=== PATIENT | female | born 1965 | race Caucasian/White ===

== ENCOUNTER 2016-06-21 16:16 | Emergency (ER) | payer MEDICARE, OTHER ==
[~2016-06-21] VITALS: Ht 162.6 cm; Wt 104.3 kg
[~2016-06-21 16:16] MED LIST: ACET12.53 PO; AMOX500C2 PO; HYDR25TA4 PO; IBUP-1955 PO; LEVO75TA7 PO; SIMV20TA6 PO
--- NOTE | 2016-06-21 16:37 | NUR ---
DR EMMANUEL AT THE BEDSIDE FOR EVAL AND EXAM.
[2016-06-21 16:59] LABS: BASOPHILS # (AUTO) 0.1 K/uL (0.0-8.0); BASOPHILS % (AUTO) 1.1 % (0.0-2.0); EOSINOPHILS # (AUTO) 0.3 K/uL (0.0-0.7); EOSINOPHILS % (AUTO) 5.1 % (0.0-7.0); HEMATOCRIT 32.3 % (37-47); HEMOGLOBIN 10.8 G/DL (12.0-16.0); LYMPHOCYTES # (AUTO) 2.3 K/uL (20.0-40.0); LYMPHOCYTES % (AUTO) 33.6 % (20.5-51.5); MEAN CORPUSCULAR HEMOGLOBIN 27.3 UUG (27.0-31.0); MEAN CORPUSCULAR HGB CONC 33 g/dL (32.0-37.0); MEAN CORPUSCULAR VOLUME 82.1 FL (81.0-99.0); MONOCYTES # (AUTO) 0.7 K/uL (2.0-10.0); MONOCYTES % (AUTO) 10.6 % (0.0-11.0); NEUTROPHILS # (AUTO) 3.3 K/uL (1.8-8.9); NEUTROPHILS % (AUTO) 49.6 % (38.5-71.5); PLATELET COUNT (AUTO) 341 K/UL (150-450); RED BLOOD CELL COUNT(AUTO) 3.94 MIL/UL (4.2-5.4); WHITE BLOOD COUNT (AUTO) 6.7 K/UL (4.0-11.2)
[2016-06-21 17:03] LABS: CALCIUM 8.6 mg/dL (8.5-10.1); CREATININE 1.1 mg/dL (0.6-1.3); POTASSIUM 3.3 mmol/L (3.5-5.1)
[2016-06-21 17:09] LABS: ALBUMIN 3.7 g/dL (3.4-5.0); BILIRUBIN,TOTAL 0.3 mg/dL (0.2-1.0); TOTAL PROTEIN, SERUM 7.3 g/dL (6.4-8.2)
[2016-06-21] MEDS ORDERED: HYDROCHLOROTHIAZIDE 25 MG TABLET PO ONE (17:30)
[2016-06-21] MEDS ORDERED: SIMVASTATIN 10 MG TABLET PO ONE (17:30)
[2016-06-21] MEDS ORDERED: LEVOTHYROXINE SODIUM 75 MCG TABLET PO ONE (17:30)
[2016-06-21] MEDS ORDERED: POTASSIUM BICARBONATE/CIT AC 25 MEQ TABLET.EFF PO ONE (17:30)
[2016-06-21] MEDS ORDERED: SIMVASTATIN 10 MG TABLET ONE (17:40)
[2016-06-21] MEDS ORDERED: LEVOTHYROXINE SODIUM 75 MCG TABLET ONE (17:40)
[2016-06-21] MEDS ORDERED: POTASSIUM BICARBONATE/CIT AC 25 MEQ TABLET.EFF ONE (17:40)
[2016-06-21] MEDS ORDERED: HYDROCHLOROTHIAZIDE 25 MG TABLET ONE (17:40)
--- NOTE | 2016-06-21 17:48 | NUR ---
Patient discharged to home in stable conditon. Written and verbal after care instructions given. Patient verbalizes understanding of instructions.
[2016-06-21 17:49] VITALS: BP 147/66
[2016-06-21 17:50] LABS: ANISOCYTOSIS 1+
[2016-06-21 17:51] LABS: OVALOCYTES FEW
== END 2016-06-21 17:49 | disposition home or self-care (01) ==
LOC: ER 16:16
DX: K08.89 Other specified disorders of teeth and supporting structures (principal); I10 Essential (primary) hypertension; E03.9 Hypothyroidism, unspecified; E78.5 Hyperlipidemia, unspecified
CPT/HCPCS: 36415; 85025; A4663

== ENCOUNTER 2016-06-23 12:15 | Emergency (ER) | payer MEDICARE, OTHER ==
[~2016-06-23] VITALS: Ht 165.1 cm; Wt 104.3 kg
[2016-06-23] MEDS ORDERED: AMOXICILLIN-CLAVUL 500-125MG TABLET PO ONE (13:00)
[2016-06-23] MEDS ORDERED: LEVOTHYROXINE SODIUM 75 MCG TABLET PO ONE (13:00)
[2016-06-23] MEDS ORDERED: HYDROCHLOROTHIAZIDE 25 MG TABLET PO ONE (13:00)
[2016-06-23] MEDS ORDERED: SIMVASTATIN 10 MG TABLET PO ONE (13:00)
[2016-06-23] MEDS ORDERED: AMOXICILLIN-CLAVUL 500-125MG TABLET ONE (13:08)
[2016-06-23] MEDS ORDERED: HYDROCHLOROTHIAZIDE 25 MG TABLET ONE (13:09)
[2016-06-23] MEDS ORDERED: SIMVASTATIN 10 MG TABLET ONE (13:09)
[2016-06-23] MEDS ORDERED: LEVOTHYROXINE SODIUM 75 MCG TABLET ONE (13:09)
--- NOTE | 2016-06-23 13:11 | NUR ---
Patient discharged to home in stable conditon. Written and verbal after care instructions given. Patient verbalizes understanding of instructions.
[2016-06-23 13:12] VITALS: BP 115/88
== END 2016-06-23 13:12 | disposition home or self-care (01) ==
LOC: ER 12:15
DX: K08.89 Other specified disorders of teeth and supporting structures (principal); I10 Essential (primary) hypertension; E03.9 Hypothyroidism, unspecified; E78.5 Hyperlipidemia, unspecified; Z59.0 Homelessness
CPT/HCPCS: A4663

== ENCOUNTER 2016-07-31 11:37 | Emergency (ER) | payer MEDICARE, OTHER ==
[~2016-07-31] VITALS: Ht 162.6 cm; Wt 113.9 kg
--- NOTE | 2016-07-31 12:07 | NUR ---
pt requesting to see a social professionals. called [facility]. she said she will come and seee the pt.
--- NOTE | 2016-07-31 12:10 | NUR ---
shake talking to pt.
--- NOTE | 2016-07-31 13:23 | NUR ---
SW consult requested from JOHN Field, who stated that patient wanted to speak with a SW. SW arrived to the ED and patient was waiting for SW in the ED lobby (medical care/services were already completed). SW met with patient who was alert, oriented, cooperative, and receptive to meet with SW. Patient expressed being homeless and wanted to see if SW had resources on housing. SW assessed patient's needs for food, half-way, income, and personal hygiene needs. Patient was receptive of getting resources for all these. 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 SW provided the resources listed below to patient and also encouraged patient to follow up with her case loader operator for ongoing assistance with housing resources and any other community resources she feels she needs help linking to. Patient agreed and thanked YOUNG. 1) List of locations for showers, sack lunches, and hot meals Saturday through Saturday throughout the [facility] 2) List of Food Pantries Saturday through Saturday throughout the [facility] 3) [facility], [address] [place] [id number]; [phone] Patient stated that she received a disability check every month, and is able to manage with paying for food. Patient also stated that she was in the [facility] half-way program up until it closed at the end of April. Patient expressed not being interested in additional half-way resources at this time. SW reported back to JOHN Field and Dr. Rice on the outcome of YOUNG's meeting with patient and the resources provided. A copy of the resources that were provided to the patient were filed inpatient's ED file.
== END 2016-07-31 12:21 | disposition home or self-care (01) ==
LOC: ER 11:39
DX: Z76.0 Encounter for issue of repeat prescription (principal); I10 Essential (primary) hypertension; E78.5 Hyperlipidemia, unspecified; E03.9 Hypothyroidism, unspecified; Z59.0 Homelessness
CPT/HCPCS: A4663

== ENCOUNTER 2016-08-06 11:41 | Emergency (ER) | payer MEDICARE, OTHER ==
[~2016-08-06] VITALS: Ht 165.1 cm; Wt 113.9 kg
[~2016-08-06 11:41] MED LIST changes: -ACET12.53 PO; -AMOX500C2 PO; -IBUP-1955 PO
--- NOTE | 2016-08-06 13:15 | NUR ---
PT WET DOWN TO [place] FOR LUNCH.
[2016-08-06 14:13] LABS: BASOPHILS # (AUTO) 0.1 K/uL (0.0-8.0); BASOPHILS % (AUTO) 0.9 % (0.0-2.0); EOSINOPHILS # (AUTO) 0.2 K/uL (0.0-0.7); EOSINOPHILS % (AUTO) 2.8 % (0.0-7.0); HEMATOCRIT 37.2 % (37-47); LYMPHOCYTES # (AUTO) 2.2 K/UL (0.8-4.8); LYMPHOCYTES % (AUTO) 29.8 % (20.5-51.5); MEAN CORPUSCULAR HEMOGLOBIN 26.5 UUG (27.0-31.0); MEAN CORPUSCULAR HGB CONC 32 g/dL (32.0-37.0); MEAN CORPUSCULAR VOLUME 82.3 FL (81.0-99.0); MONOCYTES # (AUTO) 0.7 K/UL (0.1-1.30); MONOCYTES % (AUTO) 9.6 % (0.0-11.0); NEUTROPHILS # (AUTO) 4.2 K/UL (1.8-8.9); NEUTROPHILS % (AUTO) 56.9 % (38.5-71.5); PLATELET COUNT (AUTO) 322 K/UL (150-450); RED BLOOD CELL COUNT(AUTO) 4.52 MIL/UL (4.2-5.4); WHITE BLOOD COUNT (AUTO) 7.4 K/UL (4.0-11.2)
[2016-08-06 14:36] LABS: BILIRUBIN,TOTAL 0.3 mg/dL (0.2-1.0); CREATININE 0.9 mg/dL (0.6-1.3); POTASSIUM 2.9 mmol/L (3.5-5.1); TOTAL PROTEIN, SERUM 8.5 g/dL (6.4-8.2)
--- NOTE | 2016-08-06 14:38 | NUR ---
Patient is resting comfortably in bed with eyes closed, NAD noted.
[2016-08-06] MEDS ORDERED: POTASSIUM BICARBONATE/CIT AC 25 MEQ TABLET.EFF PO ONE (14:45)
[2016-08-06] MEDS ORDERED: POTASSIUM BICARBONATE/CIT AC 25 MEQ TABLET.EFF ONE (15:00)
[2016-08-06 15:34] VITALS: BP 124/70
--- NOTE | 2016-08-06 15:34 | NUR ---
Patient given written and verbal discharge instructions. Patient verbalizes understanding of instructions. Patient is ambulatory with steady gait. Refuses offer of care home placement. Patient given list of available shelters in surrounding area.
== END 2016-08-06 15:36 | disposition home or self-care (01) ==
LOC: ER 11:41
DX: E87.6 Hypokalemia (principal); I10 Essential (primary) hypertension; E78.5 Hyperlipidemia, unspecified; E03.9 Hypothyroidism, unspecified
CPT/HCPCS: 36415; 83735; 85025; A4663

== ENCOUNTER 2016-09-07 09:30 | Emergency (ER) | payer MEDICARE, OTHER ==
[~2016-09-07] VITALS: Ht 162.6 cm; Wt 104.3 kg
--- NOTE | 2016-09-07 09:49 | NUR ---
[facility] in [facility] - 09/07/16 at 0953 by FELIX CALLED 3 TIMES NO ANSWER. DEJAHBT
--- NOTE | 2016-09-07 09:59 | NUR ---
PT IS IN ROOM #5. DR PENNY EVALUATED THE PT.
[2016-09-07] MEDS: IBUPROFEN 800 MG TABLET PO ONE (11:12)
[2016-09-07] MEDS ORDERED: IBUPROFEN 800 MG TABLET ONE (11:17)
[2016-09-07] MEDS: LEVOTHYROXINE SODIUM 75 MCG TABLET PO ONE (11:30)
[2016-09-07] MEDS: SIMVASTATIN 10 MG TABLET PO ONE (11:30)
[2016-09-07] MEDS: HYDROCHLOROTHIAZIDE 25 MG TABLET PO ONE (11:31)
[2016-09-07] MEDS ORDERED: LEVOTHYROXINE SODIUM 75 MCG TABLET ONE (11:38)
[2016-09-07] MEDS ORDERED: SIMVASTATIN 10 MG TABLET ONE (11:39)
[2016-09-07] MEDS ORDERED: HYDROCHLOROTHIAZIDE 25 MG TABLET ONE (11:39)
== END 2016-09-07 11:31 | disposition home or self-care (01) ==
LOC: ER 09:30
DX: Z76.0 Encounter for issue of repeat prescription (principal); K08.89 Other specified disorders of teeth and supporting structures; E78.5 Hyperlipidemia, unspecified; I10 Essential (primary) hypertension; E03.9 Hypothyroidism, unspecified; Z59.0 Homelessness
CPT/HCPCS: A4663

== ENCOUNTER 2016-12-11 11:43 | Emergency (ER) | payer MEDICARE, OTHER ==
[~2016-12-11] VITALS: Ht 162.6 cm; Wt 101.2 kg
--- NOTE | 2016-12-11 12:06 | NUR ---
YUSEF MAHAJAN AT THE BEDSIDE.
[2016-12-11 12:26] VITALS: BP 149/67
[2016-12-11] MEDS ORDERED: HYDROCHLOROTHIAZIDE 25 MG TABLET PO ONE (12:30)
[2016-12-11] MEDS ORDERED: HYDROCHLOROTHIAZIDE 25 MG TABLET ONE (12:39)
== END 2016-12-11 12:31 | disposition home or self-care (01) ==
LOC: ER 11:45
DX: Z76.0 Encounter for issue of repeat prescription (principal); E03.9 Hypothyroidism, unspecified; I10 Essential (primary) hypertension; K08.89 Other specified disorders of teeth and supporting structures; Z59.0 Homelessness
CPT/HCPCS: 99283; A4663

== ENCOUNTER 2017-11-07 06:10 | Emergency (ER) | payer MEDICARE, OTHER ==
[~2017-11-07] VITALS: Ht 162.6 cm; Wt 93.4 kg
--- NOTE | 2017-11-07 07:23 | NUR ---
Patient given written and verbal discharge instructions. Patient verbalizes understanding of instructions. Patient is ambulatory with steady gait. Refuses offer of snf placement. Patient given list of available shelters in surrounding area.
[2017-11-07 07:24] VITALS: BP 118/71
== END 2017-11-07 07:24 | disposition home or self-care (01) ==
LOC: ER 06:16
DX: I10 Essential (primary) hypertension (principal); Z76.0 Encounter for issue of repeat prescription; E78.5 Hyperlipidemia, unspecified; E03.9 Hypothyroidism, unspecified; Z59.0 Homelessness
CPT/HCPCS: 99283; A4663

== ENCOUNTER 2017-12-09 10:41 | Emergency (ER) | payer MEDICARE, OTHER ==
[~2017-12-09] VITALS: Ht 162.6 cm; Wt 93.4 kg
--- NOTE | 2017-12-09 11:40 | NUR ---
DR EMMANUEL AT THE BEDSIDE.
[2017-12-09 11:41] VITALS: BP 112/55
--- NOTE | 2017-12-09 11:59 | NUR ---
Patient given written and verbal discharge instructions. Patient verbalizes understanding of instructions. Patient is ambulatory with steady gait. Refuses offer of prison placement. Patient given list of available shelters in surrounding area.
== END 2017-12-09 11:59 | disposition home or self-care (01) ==
LOC: ER 10:41
DX: Z76.0 Encounter for issue of repeat prescription (principal); I10 Essential (primary) hypertension; E78.5 Hyperlipidemia, unspecified; E03.9 Hypothyroidism, unspecified; Z59.0 Homelessness
CPT/HCPCS: A4663

== ENCOUNTER 2018-01-18 13:57 | Emergency (ER) | payer MEDICARE, OTHER ==
[~2018-01-18] VITALS: Ht 162.6 cm; Wt 93.0 kg
--- NOTE | 2018-01-18 14:10 | NUR ---
Patient discharged to home in stable conditon. Written and verbal after care instructions given. Patient verbalizes understanding of instructions.
== END 2018-01-18 14:11 | disposition home or self-care (01) ==
LOC: ER 13:57
DX: E03.9 Hypothyroidism, unspecified (principal); Z76.0 Encounter for issue of repeat prescription; I10 Essential (primary) hypertension; E78.5 Hyperlipidemia, unspecified; Z59.0 Homelessness; Z79.899 Other long term (current) drug therapy
CPT/HCPCS: A4663

== ENCOUNTER 2018-05-30 10:47 | Emergency (ER) | payer MEDICARE, OTHER ==
[~2018-05-30] VITALS: Ht 165.1 cm; Wt 93.0 kg
--- NOTE | 2018-05-30 10:56 | NUR ---
YUSEF MAHAJAN AT BEDSIDE FOR MSE.
--- NOTE | 2018-05-30 11:06 | NUR ---
Patient discharged to home in stable conditon. Written and verbal after care instructions given. Patient verbalizes understanding of instructions. ALL BELONGINGS W/ PT. PT SELF-AMBULATED W/O DIFFICULTY.
[2018-05-30 11:07] VITALS: BP 169/86
== END 2018-05-30 11:09 | disposition home or self-care (01) ==
LOC: ER 10:47
DX: I10 Essential (primary) hypertension (principal); K08.89 Other specified disorders of teeth and supporting structures; E03.9 Hypothyroidism, unspecified; Z76.0 Encounter for issue of repeat prescription; E78.5 Hyperlipidemia, unspecified; Z59.0 Homelessness; Z79.899 Other long term (current) drug therapy
CPT/HCPCS: A4663

== ENCOUNTER 2018-07-24 09:15 | Emergency (ER) | payer MEDICARE, OTHER ==
[~2018-07-24] VITALS: Ht 162.6 cm; Wt 86.2 kg
--- NOTE | 2018-07-24 09:40 | NUR ---
YUSEF MAHAJAN AT BEDSIDE FOR MSE.
[2018-07-24 10:13] VITALS: BP 102/66
[2018-07-24 10:14] LABS: BASOPHILS # (AUTO) 0.1 K/uL (0.0-8.0); EOSINOPHILS # (AUTO) 0.3 K/uL (0.0-0.7); EOSINOPHILS % (AUTO) 5.8 % (0.0-7.0); HEMATOCRIT 29.3 % (31.2-41.9); HEMOGLOBIN 9.4 g/dL (10.9-14.3); LYMPHOCYTES # (AUTO) 2.2 K/uL (20.0-40.0); LYMPHOCYTES % (AUTO) 42.7 % (20.5-51.5); MEAN CORPUSCULAR HEMOGLOBIN 27.2 uug (24.7-32.8); MEAN CORPUSCULAR HGB CONC 32 g/dL (32.3-35.6); MEAN CORPUSCULAR VOLUME 84.5 fL (75.5-95.3); MONOCYTES # (AUTO) 0.4 K/uL (2.0-10.0); MONOCYTES % (AUTO) 7.7 % (0.0-11.0); NEUTROPHILS # (AUTO) 2.2 K/uL (1.8-8.9); NEUTROPHILS % (AUTO) 42.8 % (38.5-71.5); PLATELET COUNT (AUTO) 278 K/uL (179-408); RED BLOOD CELL COUNT(AUTO) 3.47 MIL/uL (3.63-4.92); WHITE BLOOD COUNT (AUTO) 5.2 K/uL (3.8-11.8)
[2018-07-24 10:22] LABS: CREATININE 0.8 mg/dL (0.6-1.3); POTASSIUM 3.6 mmol/L (3.5-5.1)
[2018-07-24 10:35] LABS: BILIRUBIN,DIRECT 0.1 mg/dL (0.0-0.2); BILIRUBIN,TOTAL 0.2 mg/dL (0.2-1.0)
== END 2018-07-24 10:18 | disposition home or self-care (01) ==
LOC: ER 09:15
DX: H10.9 Unspecified conjunctivitis (principal); I10 Essential (primary) hypertension; E03.9 Hypothyroidism, unspecified; E78.5 Hyperlipidemia, unspecified; Z79.899 Other long term (current) drug therapy
CPT/HCPCS: 36415; 70030-TC; 85025; A4663

== ENCOUNTER 2018-09-07 09:30 | Emergency (ER) | payer MEDICARE, OTHER ==
[~2018-09-07] VITALS: Ht 162.6 cm; Wt 86.2 kg
--- NOTE | 2018-09-07 10:00 | NUR ---
Patient discharged to home in stable conditon. Written and verbal after care instructions given. Patient verbalizes understanding of instructions.
== END 2018-09-07 10:00 | disposition home or self-care (01) ==
LOC: ER 09:30
DX: R60.9 Edema, unspecified (principal); I10 Essential (primary) hypertension; E78.5 Hyperlipidemia, unspecified; E03.9 Hypothyroidism, unspecified; Z76.0 Encounter for issue of repeat prescription; Z79.899 Other long term (current) drug therapy
CPT/HCPCS: A4663

== ENCOUNTER 2018-11-28 15:24 | Emergency (ER) | payer MEDICARE, OTHER ==
[~2018-11-28] VITALS: Ht 162.6 cm; Wt 93.9 kg
--- NOTE | 2018-11-28 16:31 | NUR ---
Patient discharged to home in stable conditon. Written and verbal after care instructions given. Patient verbalizes understanding of instructions.
== END 2018-11-28 16:42 | disposition home or self-care (01) ==
LOC: ER 15:28
DX: I10 Essential (primary) hypertension (principal); R01.1 Cardiac murmur, unspecified; E66.01 Morbid (severe) obesity due to excess calories; E78.5 Hyperlipidemia, unspecified; E03.9 Hypothyroidism, unspecified; Z68.35 Body mass index [BMI] 35.0-35.9, adult; Z76.0 Encounter for issue of repeat prescription; Z79.899 Other long term (current) drug therapy
CPT/HCPCS: A4663

== ENCOUNTER 2019-01-09 17:10 | Emergency (ER) | payer MEDICARE, OTHER ==
[~2019-01-09] VITALS: Ht 162.6 cm; Wt 93.9 kg
[~2019-01-09 17:10] MED LIST changes: +SIMV-46 PO; -SIMV20TA6 PO
--- NOTE | 2019-01-09 17:37 | NUR ---
PATIENT WAS SEEN BY . DC, RX AND FOLLOW UP INSTRUCTIONS GIVEN AND EXPLAINED TO PATIENT WHO STATES SHE UNDERSTANDS ALL INSTRUCTIONS.
== END 2019-01-09 17:53 | disposition home or self-care (01) ==
LOC: ER 17:12
DX: E03.9 Hypothyroidism, unspecified (principal); I10 Essential (primary) hypertension; E78.5 Hyperlipidemia, unspecified; Z79.899 Other long term (current) drug therapy; Z76.0 Encounter for issue of repeat prescription
CPT/HCPCS: A4663

== ENCOUNTER 2024-06-02 12:49 | Emergency (ER) | payer BC, MEDICAID ==
[~2024-06-02] VITALS: Ht 162.6 cm; Wt 87.5 kg
[2024-06-02 13:22] VITALS: O2SAT 97
[2024-06-02] MEDS ORDERED: SIMV-46 PO (13:38)
[2024-06-02] MEDS ORDERED: LEVO75TA7 PO (13:38)
[2024-06-02] MEDS ORDERED: HYDR25TA4 PO (13:38)
== END 2024-06-02 13:56 | disposition home or self-care (01) ==
LOC: ER 12:49
DX: E03.9 Hypothyroidism, unspecified (principal); Z76.0 Encounter for issue of repeat prescription; E78.5 Hyperlipidemia, unspecified; I11.9 Hypertensive heart disease without heart failure; Z79.890 Hormone replacement therapy; Z79.899 Other long term (current) drug therapy; Z60.2 Problems related to living alone
CPT/HCPCS: A4606; A4663